=== PATIENT | female | born 1990 | race Hispanic/Latino ===

== ENCOUNTER 2021-06-26 01:28 | Inpatient (IN) | payer OTHER ==
--- OUTSIDE RECORDS SUMMARY | 2021-06-26 01:31 | XMS REPORT | Continuity of Care Document ---
:1990 Author Organization [facility] t Address [address] [place] [address] Care Team Providers Name Role Phone Maria Dolores Attending Clinician Unavailable Magdaleno TURNER Attending Clinician Unavailable Maria Dolores Admitting Clinician Unavailable Payers Payer Name Policy Type Policy Number Effective Date Expiration Date S ource Problems This patient has no known problems. Allergies, Adverse Reactions, Alerts Allergy Allergy Status Severity Reaction(s) Onset Inactive Treating Comm ents Source Name Type Date Date Clinician No Known DA Active U [facility]-22 Clear s 00:00: [address] No Known DA Active U 0 [facility] 4-22 Clear s 00:00: [address] Medications This patient has no known medications. Procedures Procedure Date / Time Performed Performing Clinician Fernando esparza [id number] 2020-09-21 00:00:00 [facility] [id number] 2020-09-21 00:00:00 [facility] [id number] 2020-09-21 00:00:00 [facility] Encounters Start End Encounter Admission Attending Care Care Encounter Source Date/Time Date/Time Type Type Clinicians Facility Department ID 2020-09-21 Inpatient JOVANY Whitten DAYS [id number] [facility] 11:30:00 Ambika [id number] [facility] 2020-10-09 2020-10-09 Emergency E YOMAIRA TURNER SE 7500 14:02:00 22:06:00 MYRTLE harrington [facility] 2020-09-16 2020-09-16 Outpatient MANFRED Whitten LABO [id number] [facility] 18:57:00 18:57:00 Ambika [id number] [facility] Results Test Description Test Time Test Comments Results Result Comments Source STOMACH 2020-09-22 17:09:00 Test Item Value Reference Range Interpretation Comme nts STOMACH RUN DATE: (test 09/22/20 [facility] PAGE 1 RUN TIME: 1709 code = Specim en Inquiry RUN USER: INTERFACE STOM) PATIENT: JULIANE AKINS LOC: STEPHANIE U #: [id number] AGE/SX: 30/F ROOM: [facility] RE09/21/20[facility] DR: Ambika Whitten MD : [birth year] BED: A DIS: STATUS: ADM IN TLOC: SPEC #: [id number] RECD: STATUS: MICHELLE SANABRIA #: [id number] ROB: 09/21/20 [facility] DR: Ambika Whitten MD ENTERED: 09/21/20 SP TYPE: STOMACH OTHR DR: Milo Block MD ORDERED: GROSS COPIES TO: Ambika Whitten MD [address] [place] [address] Milo Block MD [address] [address] [place] [address] PROC EDURES: GROSS (09/22/20-130) TISSUES: STOMACH, NOS CLINICAL HISTORY COLLECTI ON DATE: 09/21/20 [facility] OBESITY FINAL DIAGNOSIS Stomach, sleeve gastrectomy: B ENIGN GASTRIC MUCOSA AND MUSCULAR WALL WITH NO PATHOLOGIC ALTERATION RRB/moris D [id number] MACROSCOPIC The specimen is received in formalin, labeled with the patient's name, and id entified as "portion of stomach". It consists of a portion of stomach which measures 15.5 x 4.2 x 2.7 cm. The serosal surface is unremarkable. The mucosal margin is stapled. The stomach is ope ravi and contains a small amount of hemorrhagic mucoid material. The mucosal folds are unremarkab le appearing. No focal lesions are seen. A sample of the specimen is submitted for microscopic examination in a single cassette. CONTINUED ON NEXT PAGE RUN DATE: 09/22/20 [facility] PAGE 2 RUN TIME: 1709 Specimen Inquiry RUN USER: INTERFACE SPEC #: [id number] PATIENT: JULIANE AKINS #[id number] (Continued) -- MACROSCOPIC (Continued) GROSS PERFORMED AT [facility] [address] [place] [address] (p)[phone] [facility] CROSCOPIC All of the stains, including any controls performed, stain appropriately. MICROSC OPIC PERFORMED AT [facility] [address] [place] [address] (P)[phone] PERFORMING SITE Diagnosis performed at: [facility] [address] [place] [address] --- Signed SIGNATURE ON FILE Jason Villalta MD 09/22/20 8275 END OF REPORT BASIC METABOLIC [id number] 04:49:00 Test Item Value Reference Range Interpretation Comments SODIUM (test code = 138 mmol/L 136-145 N NA) POTASSIUM (test code 3.8 mmol/L 3.5-5.1 N = K) CHLORIDE (test code 107.0 mmol/L 98-107 N = CL) CARBON DIOXIDE (test 21.0 mmol/L 21-32 N code = CO2) ANION GAP (test code 13.8 10-20 N = GAP) GLUCOSE (test code = 111 mg/dL 74-106 H GLU) BLOOD UREA NITROGEN 12 mg/dL 7-18 N (test code = BUN) GLOMERULAR > 60 mL/min See_Comment Estimated GFR b y FILTRATION RATE using Modifi ed MDRD (test code = GFR) formula.Ch ron kidney disease is defined as eith er kidney damageor GFR <60 mL/min/1.73 m2 for >3 months. [Automated mess age] The system [employer] generated this result transmitted ref erence range: >=60. Th e reference range was not used to int erpret this result as normal/abnormal . CREATININE (test 0.80 mg/dL 0.55-1.02 N Note thomas ge in code = CREAT) reference rang e due to change in reagent. BUN/CREATININE RATIO 14.5 10-20 N (test code = BUN/CREA) CALCIUM (test code = 9.1 mg/dL 8.5-10.1 N CA) CBC W/AUTO [id number] 04:45:00 Test Item Value Reference Range Interpretation Comments WHITE BLOOD CELL (test code = 10.2 K/mm3 4.5-12.5 N WBC) RED BLOOD CELL (test code = 4.68 mill/mm3 3.7-5.2 N RBC) HEMOGLOBIN (test code = HGB) 13.6 gram/dL 11.5-15.5 N HEMATOCRIT (test code = HCT) 39.6 % 36.0-46.0 N MEAN CELL VOLUME (test code = 84.6 fL 80-98 N MCV) MEAN CELL HGB (test code = MCH) 29.1 picogram 27.0-33.0 N MEAN CELL HGB CONCETRATION 34.3 gram/dL 33.0-36.0 N (test code = MCHC) RED CELL DISTRIBUTION WIDTH 12.4 % 11.6-16.2 N (test code = RDW) RED CELL DISTRIBUTION WIDTH SD 37.4 fL 37.0-51.0 N (test code = RDW-SD) PLATELET COUNT (test code = 313 K/mm3 150-450 N PLT) MEAN PLATELET VOLUME (test code 9.8 fL 6.7-11.0 N = MPV) NEUTROPHIL % (test code = NT%) 88.0 % 39.0-69.0 H IMMATURE GRANULOCYTE % (test 0.4 % 0.0-5.0 N code = IG%) LYMPHOCYTE % (test code = LY%) 6.3 % 25.0-55.0 L MONOCYTE % (test code = MO%) 5.2 % 0.0-10.0 N EOSINOPHIL % (test code = EO%) 0.0 % 0.0-5.0 N BASOPHIL % (test code = BA%) 0.1 % 0.0-1.0 N NUCLEATED RBC % (test code = 0.0 % 0-0 N NRBC%) NEUTROPHIL # (test code = NT#) 8.99 K/mm3 1.8-7.7 H IMMATURE GRANULOCYTE # (test 0.04 x10 3/uL 0-0.03 H code = IG#) LYMPHOCYTE # (test code = LY#) 0.64 K/mm3 1.0-5.0 L MONOCYTE # (test code = MO#) 0.53 K/mm3 0-0.8 N EOSINOPHIL # (test code = EO#) 0.00 K/mm3 0.0-0.5 N BASOPHIL # (test code = BA#) 0.01 K/mm3 0.0-0.2 N NUCLEATED RBC # (test code = 0.00 K/mm3 0.0-0.1 N NRBC#) MANUAL DIFF REQUIRED (test code NO = MDIFF) [id number] 10:24:00 Test Item Value Reference Range Interpretation Comments GLUBED (test code = 88 mg/dL 74-106 N Performe d by certified GLUBED) 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 Positiv e results do not rule out bacterial infection or co -infection with other viru ses. Negative result s do not preclude SARS-C oV-2 infection andsh ould not be used as the melida e basis for patient managementdecis ions. Negative result s must be combined with otherclinical observations, p atient history, and epidemiological information . Detection of SARS-CoV-2 RNA may be affe cted bysample collec tion methods, storag e conditions, and /or stageof infection. Nicole l RNA mutations, vacc inations, antiviraltherap eutics, antibiotics, chemotherapeuti c orimmunosuppres jennifer drugs have not been e valuated for effectson d etection. Results are for the identification of SARS-CoV-2 RNA usingreal-time (RT) polymerase danielle n reaction (PCR) technolog yfor the qualitative det ection of nucleic acids f rom [id number] v irus and diagnosis of SA RS-CoV-2 virusinfection. It is an Emergency Use Authorization ( EUA) testauthorized by the U.S. FDA. Novel Coronavirus [id number] 09:49:00 Test Item Value Reference Range Interpretation Comments Novel Coronavirus Negative Negative Positive r esults are 2019 Inhouse (test indicativ e of the presence code = [id number]) ofSARS-CoV -2 RNA, clinical correlation wit h patient historyand othe r diagnostic info rmation is necessary to determinepatien t infection status. Positiv e results do not rule out bacterial infection or co -infection with other viru ses. Negative result s do not preclude SARS-C oV-2 infection andsh ould not be used as the melida e basis for patient managementdecis ions. Negative result s must be combined with otherclinical observations, p atient history, and epidemiological information . Detection of SARS-CoV-2 RNA may be affe cted bysample collec tion methods, storag e conditions, and /or stageof infection. Nicole l RNA mutations, vacc inations, antiviraltherap eutics, antibiotics, chemotherapeuti c orimmunosuppres jennifer drugs have not been e valuated for effectson d etection. Results are for the identification of SARS-CoV-2 RNA usingreal-time (RT) polymerase danielle n reaction (PCR) technolog yfor the qualitative det ection of nucleic acids f rom [id number] v irus and diagnosis of SA RS-CoV-2 virusinfection. It is an Emergency Use Authorization ( EUA) testauthorized by the U.S. FDA. URINALYSIS [id number] 18:56:00 Test Item Value Reference Range Interpretation Comments UA COLOR (test code = COLU) Light-Yellow YELLOW UA APPEARANCE (test code = CLEAR CLEAR APPU) UA GLUCOSE DIPSTICK (test NEGATIVE mg/dL NEGATIVE code = DGLUU) UA BILIRUBIN DIPSTICK (test NEGATIVE mg/dL NEGATIVE code = BILU) UA KETONE DIPSTICK (test code NEGATIVE mg/dL NEGATIVE = KETU) UA SPECIFIC GRAVITY (test 1.020 1.001-1.035 code = SGU) UA BLOOD DIPSTICK (test code Negative mg/dL NEGATIVE = LOKI) UA PH DIPSTICK (test code = 6.5 5.0-8.0 TREY) UA PROTEIN DIPSTICK (test NEGATIVE mg/dL NEGATIVE code = PROU) UA UROBILINIOGEN DIPSTICK Normal mg/dL NEGATIVE (test code = URO) UA NITRITE DIPSTICK (test NEGATIVE NEGATIVE code = MANNY) UA LEUKOCYTE ESTERASE W NEGATIVE Flavio/uL NEGATIVE REFLEX (test code = LEUUR) UA WBC (test code = WBCU) 0-5 per HPF 0-5 UA RBC (test code = RBCU) 0-2 #/HPF 0-5 UA EPITHELIAL CELLS (test FEW per HPF FEW code = EPIU) UA BACTERIA (test code = NONE SEEN #/HPF NONE BACU) Urine Source? Clean CatchURINALYSIS [id number] 18:47:00 Test Item Value Reference Range Interpretation Comments UA COLOR (test code = COLU) Light-Yellow YELLOW UA APPEARANCE (test code = CLEAR CLEAR APPU) UA GLUCOSE DIPSTICK (test NEGATIVE mg/dL NEGATIVE code = DGLUU) UA BILIRUBIN DIPSTICK (test NEGATIVE mg/dL NEGATIVE code = BILU) UA KETONE DIPSTICK (test code NEGATIVE mg/dL NEGATIVE = KETU) UA SPECIFIC GRAVITY (test 1.020 1.001-1.035 code = SGU) UA BLOOD DIPSTICK (test code Negative mg/dL NEGATIVE = LOKI) UA PH DIPSTICK (test code = 6.5 5.0-8.0 TREY) UA PROTEIN DIPSTICK (test NEGATIVE mg/dL NEGATIVE code = PROU) UA UROBILINIOGEN DIPSTICK Normal mg/dL NEGATIVE (test code = URO) UA NITRITE DIPSTICK (test NEGATIVE NEGATIVE code = MANNY) UA LEUKOCYTE ESTERASE W NEGATIVE Flavio/uL NEGATIVE REFLEX (test code = LEUUR) UA WBC (test code = WBCU) per HPF 0-5 UA RBC (test code = RBCU) per HPF 0-5 UA EPITHELIAL CELLS (test per HPF Few code = EPIU) UA BACTERIA (test code = per HPF NONE BACU) Urine Source? Clean CatchPROTHROMBIN [id number] 18:41:00 Test Item Value Reference Range Interpretation Comments PROTHROMBIN TIME 11.2 seconds 9.0-14.0 N PATIENT (test code = PTP) INTERNATIONAL NORMAL 1.0 0.8-1.2 N The the rapeutic range RATIO (test code = for oral INR) anticoagulant t herapy formost indicat ions is an internati onal normalized rati o (INR)of between 2.0 and 3.0. The recommended therapeutic INR range for various cli nical situations is l isted below: Clinical Situat ion INR range Pulmonary embol ism treatment (2.0-3.0)Venou s thrombosis treatmentVenous thrombosis prophylaxis (hi gh risk surgery)Prevent ion of systemic emboli sm from: A cute myocardial infa rction Valvula r heart disease Atrial fibrilla tion Mechanical pros thetic heart valves (2.5-3.5) IS PATIENT ON ANTICOAGULANTS? NTHROMBOPLASTIN TIME [id number] 18:41:00 Test Item Value Reference Range Interpretation Comments THROMBOPLASTIN TIME PARTIAL 36.2 seconds 23.0-37.0 N (test code = PTT) IS PATIENT ON ANTICOAGULANTS? NCBC W/AUTO [id number] 18:38:00 Test Item Value Reference Range Interpretation Comments WHITE BLOOD CELL (test code = 7.0 K/mm3 4.5-12.5 N WBC) RED BLOOD CELL (test code = 4.95 mill/mm3 3.7-5.2 N RBC) HEMOGLOBIN (test code = HGB) 14.2 gram/dL 11.5-15.5 N HEMATOCRIT (test code = HCT) 43.3 % 36.0-46.0 N MEAN CELL VOLUME (test code = 87.5 fL 80-98 N MCV) MEAN CELL HGB (test code = MCH) 28.7 picogram 27.0-33.0 N MEAN CELL HGB CONCETRATION 32.8 gram/dL 33.0-36.0 L (test code = MCHC) RED CELL DISTRIBUTION WIDTH 12.8 % 11.6-16.2 N (test code = RDW) RED CELL DISTRIBUTION WIDTH SD 40.4 fL 37.0-51.0 N (test code = RDW-SD) PLATELET COUNT (test code = 314 K/mm3 150-450 N PLT) MEAN PLATELET VOLUME (test code 10.4 fL 6.7-11.0 N = MPV) NEUTROPHIL % (test code = NT%) 68.4 % 39.0-69.0 N IMMATURE GRANULOCYTE % (test 0.3 % 0.0-5.0 N code = IG%) LYMPHOCYTE % (test code = LY%) 25.2 % 25.0-55.0 N MONOCYTE % (test code = MO%) 4.9 % 0.0-10.0 N EOSINOPHIL % (test code = EO%) 0.9 % 0.0-5.0 N BASOPHIL % (test code = BA%) 0.3 % 0.0-1.0 N NUCLEATED RBC % (test code = 0.0 % 0-0 N NRBC%) NEUTROPHIL # (test code = NT#) 4.76 K/mm3 1.8-7.7 N IMMATURE GRANULOCYTE # (test 0.02 x10 3/uL 0-0.03 N code = IG#) LYMPHOCYTE # (test code = LY#) 1.75 K/mm3 1.0-5.0 N MONOCYTE # (test code = MO#) 0.34 K/mm3 0-0.8 N EOSINOPHIL # (test code = EO#) 0.06 K/mm3 0.0-0.5 N BASOPHIL # (test code = BA#) 0.02 K/mm3 0.0-0.2 N NUCLEATED RBC # (test code = 0.00 K/mm3 0.0-0.1 N NRBC#) MANUAL DIFF REQUIRED (test code NO = MDIFF) CBC W/AUTO [id number] 18:33:00 Test Item Value Reference Range Interpretation Comments WHITE BLOOD CELL (test code = K/mm3 4.5-12.5 WBC) RED BLOOD CELL (test code = RBC) mill/mm3 3.7-5.2 HEMOGLOBIN (test code = HGB) 14.2 gram/dL 11.5-15.5 N HEMATOCRIT (test code = HCT) 43.3 % 36.0-46.0 N MEAN CELL VOLUME (test code = fL 80-98 MCV) MEAN CELL HGB (test code = MCH) picogram 27.0-33.0 MEAN CELL HGB CONCETRATION (test gram/dL 33.0-36.0 code = MCHC) RED CELL DISTRIBUTION WIDTH % 11.6-16.2 (test code = RDW) RED CELL DISTRIBUTION WIDTH SD fL 37.0-51.0 (test code = RDW-SD) PLATELET COUNT (test code = PLT) 314 K/mm3 150-450 N MEAN PLATELET VOLUME (test code fL 6.7-11.0 = MPV) NEUTROPHIL % (test code = NT%) % 39.0-69.0 IMMATURE GRANULOCYTE % (test % 0.0-5.0 code = IG%) LYMPHOCYTE % (test code = LY%) % 25.0-55.0 MONOCYTE % (test code = MO%) % 0.0-10.0 EOSINOPHIL % (test code = EO%) % 0.0-5.0 BASOPHIL % (test code = BA%) % 0.0-1.0 NEUTROPHIL # (test code = NT#) K/mm3 1.8-7.7 LYMPHOCYTE # (test code = LY#) K/mm3 1.0-5.0 MONOCYTE # (test code = MO#) K/mm3 0-0.8 EOSINOPHIL # (test code = EO#) K/mm3 0.0-0.5 BASOPHIL # (test code = BA#) K/mm3 0.0-0.2 COMPREHENSIVE METABOLIC [id number] 18:23:00 Test Item Value Reference Range Interpretation Comments SODIUM (test code = 136 mmol/L 136-145 N NA) POTASSIUM (test code 3.5 mmol/L 3.5-5.1 N = K) CHLORIDE (test code = 106.0 mmol/L 98-107 N CL) CARBON DIOXIDE (test 24.0 mmol/L 21-32 N code = CO2) ANION GAP (test code 9.5 10-20 L = GAP) GLUCOSE (test code = 75 mg/dL 74-106 N GLU) BLOOD UREA NITROGEN 13 mg/dL 7-18 N (test code = BUN) GLOMERULAR FILTRATION > 60 mL/min See_Comment Estima lopez GFR by RATE (test code = using Jacquelyn fied MDRD GFR) formula.Chronic kidney disease is defined as eith er kidney damageor GFR <60 mL/min/1.73 m2 for >3 months. [Automated mess age] The system [employer] generated this result transmit lopez reference range : >=60. The refer ence range was not u sed to interpret th is result as normal/abnormal . CREATININE (test code 0.80 mg/dL 0.55-1.02 N Note change in = CREAT) reference range due to change in reagent. BUN/CREATININE RATIO 16.0 10-20 N (test code = BUN/CREA) TOTAL PROTEIN (test 7.6 gram/dL 6.4-8.2 N code = PROT) ALBUMIN (test code = 4.2 g/dL 3.4-5.0 N ALB) GLOBULIN (test code = 3.4 gram/dL 2.7-4.2 N GLOB) ALBUMIN/GLOBULIN 1.2 0.75-1.50 N RATIO (test code = A/G) CALCIUM (test code = 9.7 mg/dL 8.5-10.1 N CA) BILIRUBIN TOTAL (test 0.50 mg/dL 0.0-1.0 N code = BILT) SGOT/AST (test code = 24 IUnit/L 15-37 N AST) SGPT/ALT (test code = 41 IUnit/L 12-78 N ALT) ALKALINE PHOSPHATASE 65 IUnit/L 45-117 N Note change in TOTAL (test code = reference range due ALKP) to change in reagent. HCG SERUM [id number] 18:21:00 Test Item Value Reference Range Interpretation Comments HCG SERUM QUAL (test NEGATIVE NEGATIVE This HC GQL test is NOT code = HCGQL) applicable for MALE patients.Check with nurse about probable order error.If Tumor Marker Test needed, nu rse should order test "HCG TU"(Test #[id number])---- - - XR CHEST 2 [id number] 14:39:00 [facility] 1990 Sex: F FAX: Ambika Benavidez MD [phone] [place]: O St: PRE Name: JULIANE AKINS [facility] : 1990 Age/S: 30/F [address] Unit #: [id number] Loc: [place] [address] Phys: Ambika Whitten MD Acct: [id number] Dis Date: Status: PRE IN PHONE #: [phone] Exam Date: 09/16/2020 1435 FAX #: [phone] Reason: PRE OP EXAMS: CPT CODE: [id number] XR CHEST 2 V 21631 REASON FOR EXAM: PRE OP Exam Order Date: 09/16/2020 2:28 PM Ordering Ranjith: JANEL BrooksROCEDURE: - XR CHEST 2 V COMPARISON: None FINDINGS: The lungs are clear. There is no pleural effusion or pneumothorax. Pulmonary vascularity is within normal limits. Cardiomediastinal silhouette is normal in size for technique. The mediastinal contours are within normal limits. Musculoskeletal structures are within normal limits. The visualized upper abdomen is within normal limits. IM PRESSION: No acute cardiopulmonary process. Location: [facility] at 1439 Reported and signedby: Jonah Santana MD CC: Ambika Whitten MD Technologist: RT Inna(Jennifer) Trnscrd Date/Time/By: 09/16/2020 (9189) : By: [email or web address] Orig Print D/T: S: 09/16/2020 (8372) PAGE 1 Signed Report
[2021-06-26] MEDS ORDERED: ONDANSETRON 4 MG/2 ML VIAL ONE ×2 (02:12→10:20)
[2021-06-26] MEDS ORDERED: NA CHLORIDE 0.9% 1,000 ML ONE ×2 (02:12→16:41)
[2021-06-26] MEDS ORDERED: MORPHINE 4 MG/ML SYR ONE (02:12)
[2021-06-26 02:14] LABS: Absolute Lymphocytes (CBC) 1.6 K/uL (0.7-4.9); Hematocrit 38.1 % (36.0-45.0); Lymphocytes % 30.8 % (15.3-44.8); MPV 7.9 fL (7.6-11.3)
[2021-06-26 02:30] LABS: Albumin 3.8 g/dL (3.4-5.0); Bilirubin Direct 1.3 mg/dL (0-0.2); Bilirubin Total 1.9 mg/dL (0.2-1.0); Potassium 3.1 mmol/L (3.5-5.1); Protein, Total 7.5 g/dL (6.4-8.2)
[2021-06-26 03:13] LABS: Urine Blood 3+ (Negative); Urine Glucose Negative (Negative); Urine Protein Negative (Negative); Urine Specific Gravity >=1.030 (1.005-1.030); Urine pH 5.5 (5.0-7.0)
[2021-06-26] MEDS ORDERED: NA CHLORIDE 0.9% 100 ML ONE ×2 (04:24→16:32)
[2021-06-26] MEDS ORDERED: PIPERACIL/TAZO 3.375 GM VIAL IV ONE ×2 (04:25→16:32)
--- NOTE | 2021-06-26 04:32 | ER ---
Nurse's Notes [facility] Name: Gerald Shin Age: 31 yrs Sex: Female : 1990 Arrival Date: 06/26/2021 Time: :30 Bed 26 Private MD: Diagnosis: Other cholelithiasis with obstruction-Possible choledocholithiasis Presentation: 06/26 01:34 Chief complaint: Patient states: Diagnosed with cholelithiasis at [place] about 4 days bb ago; Reports pain has worsened, nausea. Coronavirus screen: At this time, the client does not indicate any symptoms associated with coronavirus-19. Ebola Screen: No symptoms or risks identified at this time. Risk Assessment: Do you want to hurt yourself or someone else? Patient reports no desire to harm self or others. Onset of symptoms was June 26, 2021. 01:34 Method Of Arrival: Ambulatory bb 01:34 Acuity: CELIA 3 bb 01:35 Initial Sepsis Screen: Does the patient meet any 2 criteria? No. Patient's initial bb sepsis screen is negative. Does the patient have a suspected source of infection? No. Patient's initial sepsis screen is negative. Triage Assessment: 03:25 General: Appears in no apparent distress. well groomed, Behavior is calm, cooperative. st1 Pain: Complains of pain in abdomen Pain does not radiate. Pain. GI: No deficits noted. INTERNAL REVIEW AND AUDIT COMPLIANCE: 02:07 LMP 06/26/2021 bb Historical: - Allergies: 02:06 No Known Allergies; bb - Home Meds: 02:06 None [Active]; bb - PMHx: 02:06 None; bb - PSHx: 02:06 Gastric Sleeve; bb - Immunization history:: Adult Immunizations up to date. - Social history:: Smoking status: Patient denies any tobacco usage or history of. Screenin:24 Abuse screen: Denies threats or abuse. Nutritional screening: No deficits noted. st1 Tuberculosis screening: No symptoms or risk factors identified. Fall Risk None identified. No fall in past 12 months (0 pts). No secondary diagnosis (0 pts). IV access (20 points). Ambulatory Aid- None/Bed Rest/Nurse Assist (0 pts). Gait- Normal/Bed Rest/Wheelchair (0 pts) Mental Status- Oriented to own ability (0 pts). Total Cai Fall Scale indicates No Risk (0-24 pts). Assessment: 03:26 GI: GI:. st1 04:08 GI: Bowel sounds present X [address]1 Vital Signs: 01:35 BP 146 / 80; Pulse 66; Resp 16; Temp 98.3(O); Pulse Ox 100% on R/A; Weight 73.48 kg bb (R); Height 5 ft. 8 in. (172.72 cm); Pain 9/10; 03:58 BP 133 / 70; Pulse 51; Resp 16; Pulse Ox 98% on R/A; st1 01:35 Body Mass Index 24.63 (73.48 kg, 172.72 cm) ED Course: 01:30 Patient arrived in ED. kc5 01:35 Triage completed. bb 01:35 Arm band placed on. bb 01:36 Yinka Arroyo MD is Attending Physician. [facility] 02:03 Melodie Scott, RN is Primary Nurse. sf1 02:03 Inserted saline lock: 20 gauge in right antecubital area, using aseptic technique. sf1 Blood collected. 02:08 Basic Metabolic Panel Sent. sf1 02:08 CBC with Diff Sent. sf1 02:08 Hepatic Function Sent. sf1 02:08 Lipase Sent. sf1 02:22 US Abdomen Limited In Process Unspecified. EDMS 03:26 Patient has correct armband on for positive identification. Placed in gown. Bed in low st1 position. Call light in reach. Side rails up X 1. Pulse ox on. NIBP on. Verbal reassurance given. 04:09 No provider procedures requiring assistance completed. st1 04:31 Aditi Conteh MD is Hospitalizing Provider. 7 05:45 COVID-19 SARS RT PCR (Document "Date of Onset" if Symptomatic) Sent. st1 06:10 called and left message for Dr. Acosta to call ED for patient admission consultation. eb 07:08 Primary Nurse role handed off by Melodie Scott, RN eb Administered Medications: 02:26 Drug: NS 0.9% 1000 ml Route: IV; Rate: 1000 ml; Site: right antecubital; sf1 02:26 Drug: morphine 4 mg Route: IVP; Site: right antecubital; sf1 02:26 Drug: Zofran (Ondansetron) 4 mg Route: IVP; Site: right antecubital; sf1 04:32 Drug: Zosyn (piperacillin-tazobactam) 3.375 grams Route: IVPB; Infused Over: 60 mins; sf1 Site: right antecubital; 04:48 Drug: D5-1/2 NS with KCl 20 mEq/L 1000 ml Route: IV; Rate: 100 ml/hr; Site: right st1 antecubital; Outcome: 04:31 Decision to Hospitalize by Provider. Shashi 17:46 Patient left the ED. [facility] Signatures: Dispatcher [employer] EDMS Chelly Rivers RN RN Geovanna Sanches Lynsay, RN RN 1 Yinka Arroyo MD MD 7 Katherin Chung [facility] Estrella Caruso RN RN st1 Melodie Scott RN RN sf1
--- NOTE | 2021-06-26 04:33 | EDPHYS ---
Physician Documentation [facility] Michelle Name: Gerald Shin Age: 31 yrs Sex: Female : 1990 Arrival Date: 06/26/2021 Time: : Bed 26 Private MD: ED Physician Yinka Arroyo HPI: 06/26 02:20 This 31 yrs old Female presents to ER via Ambulatory with complaints of mh7 Abdominal Pain, Flank Pain, Back Pain. 02:20 The patient presents with abdominal pain in the right upper quadrant. Onset: The mh7 symptoms/episode began/occurred 5 day(s) ago. The symptoms radiate to right back. Associated signs and symptoms: Pertinent positives: nausea, Pertinent negatives: anorexia, blood in stools, chest pain, constipation, diarrhea, dysuria, fever, headache, hematuria, palpitations, shortness of breath, vaginal discharge, vomiting, vomiting blood. The symptoms are described as intermittent, vague, waxing/waning. Modifying factors: The symptoms are alleviated by nothing, the symptoms are aggravated by nothing. Severity of pain: At its worst the pain was moderate 2 day(s) ago, in the emergency department the pain is unchanged. 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 - Social history:: Smoking status: Patient denies any tobacco usage or history of. ROS: 02:20 Constitutional: Negative for fever, chills, and weight loss, Eyes: Negative for injury, mh7 pain, redness, and discharge, ENT: Negative for injury, pain, and discharge, Neck: Negative for injury, pain, and swelling, Cardiovascular: Negative for chest pain, palpitations, and edema, Respiratory: Negative for shortness of breath, cough, wheezing, and pleuritic chest pain, : Negative for injury, bleeding, discharge, and swelling, MS/Extremity: Negative for injury and deformity, Skin: Negative for injury, rash, and discoloration, Neuro: Negative for headache, weakness, numbness, tingling, and seizure, Psych: Negative for depression, anxiety, suicide ideation, homicidal ideation, and hallucinations, Allergy/Immunology: Negative for hives, rash, and allergies, Endocrine: Negative for neck swelling, polydipsia, polyuria, polyphagia, and marked weight changes, Hematologic/Lymphatic: Negative for swollen nodes, abnormal bleeding, and unusual bruising. Exam: 02:20 Head/Face: Normocephalic, atraumatic. Eyes: Pupils equal round and reactive to light, mh7 extra-ocular motions intact. Lids and lashes normal. Conjunctiva and sclera are non-icteric and not injected. Cornea within normal limits. Periorbital areas with no swelling, redness, or edema. Neck: Trachea midline, no thyromegaly or masses palpated, and no cervical lymphadenopathy. Supple, full range of motion without nuchal rigidity, or vertebral point tenderness. No Meningismus. Chest/axilla: Normal chest wall appearance and motion. Nontender with no deformity. No lesions are appreciated. Cardiovascular: Regular rate and rhythm with a normal S1 and S2. No gallops, murmurs, or rubs. Normal PMI, no JVD. No pulse deficits. Respiratory: Lungs have equal breath sounds bilaterally, clear to auscultation and percussion. No rales, rhonchi or wheezes noted. No increased work of breathing, no retractions or nasal flaring. 02:20 Back: No spinal tenderness. No costovertebral tenderness. Full range of motion. Skin: Warm, dry with normal turgor. Normal color with no rashes, no lesions, and no evidence of cellulitis. MS/ Extremity: Pulses equal, no cyanosis. Neurovascular intact. Full, normal range of motion. Neuro: Awake and alert, GCS 15, oriented to person, place, time, and situation. Cranial nerves II-XII grossly intact. Motor strength 5/5 in all extremities. Sensory grossly intact. Cerebellar exam normal. Normal gait. Psych: Awake, alert, with orientation to person, place and time. Behavior, mood, and affect are within normal limits. 02:20 Constitutional: The patient appears in no acute distress, alert, awake, uncomfortable. 02:20 Abdomen/GI: Inspection: abdomen appears normal, Bowel sounds: normal, in all quadrants, Palpation: moderate abdominal tenderness, in the epigastric area and right upper quadrant, mass, is not appreciated, rebound tenderness, is not appreciated, voluntary guarding, is not appreciated, involuntary guarding, is not appreciated, no appreciated organomegaly, Rectal exam: the exam is deferred, because of patient request, Indicators: McBurney's point is not tender, Denney's sign is negative, Rovsing's sign is negative, Obturator sign is negative, Psoas sign is negative, Liver: no appreciated palpable abnormalities, Hernia: not appreciated. Vital Signs: 01:35 BP 146 / 80; Pulse 66; Resp 16; Temp 98.3(O); Pulse Ox 100% on R/A; Weight 73.48 kg bb (R); Height 5 ft. 8 in. (172.72 cm); Pain 9/10; 03:58 BP 133 / 70; Pulse 51; Resp 16; Pulse Ox 98% on R/A; st1 01:35 Body Mass Index 24.63 (73.48 kg, 172.72 cm) MDM: 04:28 Differential diagnosis: bowel obstruction, cholecystitis, Cholelithiasis, gastritis, mh7 gastroesophageal reflux disease, Irritable bowel syndrome, non-specific abd pain, pancreatitis. Data reviewed: vital signs, nurses notes, diagnostic data from outside facility, CBC, electrolytes, hepatic panel, radiologic studies, ultrasound, lab test result(s), CBC, electrolytes, hepatic panel, urinalysis, UPT: radiologic studies, ultrasound. Data interpreted: Pulse oximetry: on room air is 98 %. Interpretation: normal. Counseling: I had a detailed discussion with the patient and/or guardian regarding: the historical points, exam findings, and any diagnostic results supporting the discharge/admit diagnosis, lab results, radiology results, the need for further work-up and treatment in the hospital. Response to treatment: the patient's symptoms have mildly improved after treatment. Physician consultation: Jay Jay Camacho MD was contacted at 04:10, regarding patient's condition, and will see patient in inpatient room, would like admission per Dr. Aditi Conteh MD. 04:31 Patient medically screened. 06/26 01:58 Order name: Basic Metabolic Panel; Complete Time: 02:58 06/26 01:58 Order name: CBC with Diff; Complete Time: 02:58 06/26 01:58 Order name: Hepatic Function; Complete Time: 02:58 06/26 01:58 Order name: Lipase; Complete Time: 02:58 [facility] 06/26 03:12 Order name: Urine Dipstick-Ancillary; Complete Time: 03:16 [facility] 06/26 03:12 Order name: Urine --Ancillary (enter results); Complete Time: 03:33 cs9 06/26 01:58 Order name: US Abdomen Limited 7 06/26 04:53 Order name: COVID-19 SARS RT PCR (Document "Date of Onset" if Symptomatic); Complete bb Time: 19:22 06/26 07:48 Order name: Protime (+INR); Complete Time: 19:22 [facility] 06/26 07:48 Order name: PTT, Activated Partial Thromb; Complete Time: 19:22 [facility] 06/26 01:58 Order name: IV Saline Lock; Complete Time: 02:08 [facility] 06/26 01:58 Order name: Labs collected and sent; Complete Time: 02:08 [facility] 06/26 01:58 Order name: Urine Dipstick-Ancillary (obtain specimen); Complete Time: 03:17 [facility] 06/26 01:58 Order name: Urine Test (obtain specimen); Complete Time: 03:17 [facility] 06/26 04:32 Order name: NPO; Complete Time: 04:47 [facility] 06/26 06:44 Order name: CONS Physician Consult [facility] Administered Medications: 02:26 Drug: NS 0.9% 1000 ml Route: IV; Rate: 1000 ml; Site: right antecubital; sf1 02:26 Drug: morphine 4 mg Route: IVP; Site: right antecubital; sf1 02:26 Drug: Zofran (Ondansetron) 4 mg Route: IVP; Site: right antecubital; sf1 04:32 Drug: Zosyn (piperacillin-tazobactam) 3.375 grams Route: IVPB; Infused Over: 60 mins; sf1 Site: right antecubital; 04:48 Drug: D5-1/2 NS with KCl 20 mEq/L 1000 ml Route: IV; Rate: 100 ml/hr; Site: right st1 antecubital; Disposition Summary: 06/26/21 04:31 Hospitalization Ordered Hospitalization Status: Inpatient Admission [facility] Provider: Aditi Conteh Condition: Stable mh7 Problem: new [facility] Symptoms: have improved mh Bed/Room Type: Standard [facility] Location: Telemetry/MedSurg (Inpatient)(06/26/21 16:54) eb Room Assignment: 408(06/26/21 16:54) Diagnosis - Other cholelithiasis with obstruction - Possible choledocholithiasis [facility] Forms: - Medication Reconciliation Form 7 - SBAR form [facility] Signatures: Dispatcher [employer] EDMS Wendie Mejias RN RN mw Ballard, Brenda, RN RN bb Botello, Elizabeth eb Holmes, Maurice, MD MD Estrella Mcnulty RN RN st1 Melodie Scott RN RN sf1 Corrections: (The following items were deleted from the chart) 05:41 04:31 Telemetry/MedSurg (Inpatient) [facility] mw 05:41 04:31 7 mw 16:54 05:41 BR ER HOLD mw eb 16:54 05:41 ERHOLD- mw eb
[2021-06-26] MEDS ORDERED: D5 0.45 NS 0 ML IV ONE (04:45)
[2021-06-26] MEDS ORDERED: D5.45NS W/KCL 20MEQ 1,000 ML IV ONE (04:47)
--- NOTE | 2021-06-26 06:56 | P.HP ---
Certification for Inpatient Patient admitted to: Inpatient With expected LOS: <2 Midnights Patient will require the following post-hospital care: None Practitioner: I am a practitioner with admitting privileges, knowledge of patient current condition, hospital course, and medical plan of care. Services: Services provided to patient in accordance with Admission requirements found in Title 42 Section 412.3 of the Code of Federal Regulations Patient History Date of Service: 06/26/21 Primary Care Provider: Noe Reason for admission: cholecystitis History of Present Illness: Ms. Shin is a 31yo F with cholelithiasis who presents with 5 days of severe RUQ pain radiatian to her flank. She reports nausea. She has had decreased appetite and fluid intake. Symptoms are worse with food intake. Denies fever, and vomiting. She was scheduled for an appointment with general surgeon on Sunday but her pain continued to increase this evening. Gallbladder US shows cholelithiasis with gall bladder sludge, dilated DBD suspect distal biliary obstruction K 3.1 BUN 20 GFR 74 Tbili 1.9 Dbili 1.3 AST 17 ALT 271 alk phos 155 Ua ketone 2+ blood 3+ Allergies No Known Allergies Allergy (Verified 08/28/12 10:18) Home Medications: Methyldopa 1 tab PO BID 02/24/14 Hydrocodone 10/APAP 325 [[place] 10/325*] 1 tab PO Q6H PRN #20 tab 02/25/14 - Past Medical/Surgical History Diabetic: No Past Medical History: Patient denies medical history -: normal vaginal delivery x2 -: gastric sleeve - Family History Family History: Reviewed- Non-Contributory - Social History Smoking Status: Never smoker Alcohol use: No CD- Drugs: No Caffeine use: No Place of Residence: Home Review of Systems 10-point ROS is otherwise unremarkable Gastrointestinal: Nausea, Abdominal Pain Physical Examination - Physical Exam General: Alert, In no apparent distress HEENT: Atraumatic, PERRLA, Mucous membr. moist/pink, EOMI, Sclerae nonicteric Neck: Supple, 2+ carotid pulse no bruit, No LAD, Without JVD or thyroid abnormality Respiratory: Clear to auscultation bilaterally, Normal air movement Cardiovascular: Regular rate/rhythm, Normal S1 S2 Gastrointestinal: Normal bowel sounds, Tenderness Musculoskeletal: No tenderness Integumentary: No rashes Neurological: Normal speech, Normal strength at 5/5 x4 extr, Normal tone, Normal affect Lymphatics: No axilla or inguinal lymphadenopathy - Studies Laboratory Data (last 24 hrs) 06/26/21 02:05: WBC 5.20, Hgb 13.0, Hct 38.1, Plt Count 267 06/26/21 02:05: Sodium 140, Potassium 3.1 L, BUN 20 H, Creatinine 0.90, Glucose 88, Total Bilirubin 1.9 H, AST 117 H, ALT 271 H, Alkaline Phosphatase 155 H, Lipase 123 Assessment and Plan - Problems (Diagnosis) (1) Cholecystitis Current Visit: Yes Status: Acute (2) Common bile duct dilation Current Visit: Yes Status: Acute (3) Elevated liver enzymes Current Visit: Yes Status: Acute - Plan GI consulted, general surgery consulted NPO ERCP this AM continue IV fluid hydration IV zosyn, antiemetics and pain management SCDs Discharge Plan: Home Plan to discharge in: 48 Hours - Advance Directives Does patient have a Living Will: No Does patient have a Durable POA for Healthcare: No - Code Status/Comfort Care Code Status Assessed: Yes (full code ) Critical Care: No Time Spent Managing Pts Care (In Minutes): 70
[2021-06-26] MEDS ORDERED: ACETAMINOPHEN 500 MG TAB PO PRN (06:57)
[2021-06-26] MEDS: NA CHLORIDE 0.9% 1,000 ML IV SCH ×2 (07:00→16:28)
[2021-06-26 07:48] LABS: Protime INR 1.09
[2021-06-26 08:01] VITALS: BMI 24.6
[2021-06-26] MEDS ORDERED: GENTAMICIN SULF 80 MG/2ML INJ ONE ×2 (09:58→10:01)
[2021-06-26] MEDS ORDERED: GLUCAGON 1 MG/VIAL ONE (09:58)
[2021-06-26] MEDS ORDERED: MORPHINE 2 MG/ML SYR ONE (10:20)
[2021-06-26] MEDS: MORPHINE 2 MG/ML SYR IV PRN (10:22)
[2021-06-26] MEDS: ONDANSETRON 4 MG/2 ML VIAL IV PRN (10:22)
[2021-06-26] MEDS ORDERED: Ringers Lactate 1,000 ML IV ONE (10:33)
[2021-06-26] MEDS ORDERED: propofoL 200 MG/20 ML VIAL IV ONE ×2 (10:51)
[2021-06-26] MEDS ORDERED: GENTAMICIN 80 MG/100 ML BAG 80 MG/100 ML BAG IV SCH (11:15)
--- NOTE | 2021-06-26 13:19 | CON ---
Date of Consultation: 06/26/2021 Reason For Consultation: Cholelithiasis with cholecystitis and possible choledocholithiasis with rig ht upper quadrant epigastric pain associated with nausea, vomiting. History Of Present Illness: The patient is a 31-year-old female without significant past medical his tory except for gastric sleeve surgery on September 21, 2020, in [place], [place] and lost 100 pounds since that time. She presents now with a 5-day history of right upper quadrant midepigastric pain radiating to right flank and back associated with nausea, vomiting, headache. The patient came to the hospital. She was at [facility] may be a week ago, was told she had kidney stones with a CT ultrasound done and now she comes back again today to the [facility] Emergency Room with the same complaints and found to have gallstones and gallbladder with common bile duct approximately 9-10 mm in size, however, finalized report is pending at this time. Total biliru bin elevated at 1.3, direct bilirubin of approximately 1, and positive Denney sign on physical exam. Past Medical History: Significant for gastric sleeve surgery, September 21, 2020, 100-pound weight loss since then. Hypertension in the past is resolved. Weight loss. Lower back disk disorder, possible herniation with muscle relaxant, Soma in the past, which she does not take any more. [place], she had taken in the past, does not take it anymore. Social History: She is , 3 children. No tobacco. No alcohol. Family History: Mother and father alive and well. No medical problems noted by patient. Review of Systems: The patient has right upper quadrant midepigastric pain radiating to right flank and back associated with nausea, vomiting, and headache. 100-pound weight loss over the past 8 months from gastric sleev e surgery. She denies any fevers, chills, night sweats, melena, hematochezia, hematemesis, coffee-gr ound emesis, hematuria, hemoptysis, syncope, seizures, chest pain, shortness of breath. No depressio n or anxiety. Now she is little anxious about this procedure in her current condition and need for possible surgery as well. Physical Examination: Vital Signs: The patient is 5 feet 8 inches, 161 pounds, BMI of 24.6 kg/sq m. Temperature 98.9 degr ees Fahrenheit, pulse 49-50, blood pressure 138/71, oxygen saturation 100%. HEENT: Normocephalic, atraumatic. Anicteric. Pupils are equal, round, and reactive to light. Extr aocular movements are intact. Oropharynx is clear. Neck: Supple. No masses. Respirations: Clear to auscultation bilaterally. Cardiac: Regular rate and rhythm. No gallop or rub. Abdomen: Positive bowel sounds, somewhat hypoactive. Soft, nondistended. Pain in the midepigastric right upper quadrant area and greatest in the right upper quadrant than midepigastric, radiating to right back, right mid back. Positive Denney sign. No prodromal signs. No rebound. Extremities: No clubbing, cyanosis, or edema. 2+ pulses. Neuro: Alert and oriented x3. Grossly nonfocal. 5/5 motor strength. Sensation intact to light kings ch. Laboratory Data: The patient has white count of 5.2, hemoglobin 13.0, hematocrit 30.1, MCV of 85, pl atelet count 297, polys of 63%, lymphocytes 31%, monocytes 4%, eosinophils 1%. PT of 12.6, INR of 1. 1, PTT of 34.6. Sodium 140, potassium 3.1, chloride 106, bicarb 26, BUN of 20, creatinine 0.9, gluco se 88, calcium 9.2. Total bilirubin 1.9, direct bilirubin 1.3, AST of 117, ALT of 271, alkaline phos phatase 155, total protein 7.5, albumin 3.8. Lipase 123. Ketones of 3+, blood 3+. test n egative. Serology: COVID-19 test is positive. Ultrasound of abdomen report is pending. However, p er the report, she has a gallstone in the gallbladder and common bile duct was dilated approximately 9-10 mm in size. Impression: 1.Cholelithiasis, cholecystitis. Ultrasound revealing gallstones in gallbladder and common bile shubham t dilated at 9-10 mm. Positive Denney sign. Right upper quadrant midepigastric pain radiating to th e right back, 10/10 now down at 0 as far as intensity of pain. Nausea, vomiting, headache better as well. 2.100-pound weight loss after gastric sleeve surgery on September 21, 2020, with Dr. Whitten in [place], [place]. No fevers, chills, night sweats, melena, hematemesis, change in bowel habits. 3.Possible choledocholithiasis. 4.History of gastric sleeve surgery on September 21, 2020 with 100-pound weight loss. Prior hypertensio n resolved with weight loss and chronic low back pain with herniated disk, on Soma for muscle relaxan ts in the past. Recommendations: 1.IV fluids. 2.P.r.n. pain medications. 3.Keep patient n.p.o. 4.Proceed with ERCP. 5.IV antibiotics. 6.Surgery consult. HUGO/RESHMA Voice ID: [id number] Report ID: [id number]
--- NOTE | 2021-06-26 13:30 | P.PN ---
Date of Service: 06/26/21 Patient seen and examined. She denies abdominal pain at the moment. Diagnosis: Cholecystitis. Suspected biliary obstruction from CBD dilatation. Plan: General surgery consult. Dr. Camacho aware of patient. Dr. Acosta planning ERCP today.
[2021-06-26] MEDS: PIPER TAZO 3.375 GM in NA CHLORIDE 0.9% 100 ML IV SCH (16:29)
[2021-06-26] MEDS ORDERED: ACETAMINOPHEN 500 MG TAB ONE (16:41)
[2021-06-26] MEDS: KCL 20 MEQ/100 mL IVPB 20 MEQ/100 ML BAG IV SCH ×2 (20:45→23:29)
--- NOTE | 2021-06-26 23:57 | RAD REPORT ---
EXAM DESCRIPTION: US - Abdomen Exam Limited - 06/26/2021 2:22 am CLINICAL HISTORY: 31 years Female, RUQ pain;Abd pain COMPARISON: None. TECHNIQUE: Limited sonographic evaluation of the right upper quadrant was performed. FINDINGS: Several small shadowing stones in the gallbladder are demonstrated. Gallbladder sludge is present. No evidence gallbladder wall thickening. Common bile duct measures 1 cm in width and appears dilated. IMPRESSION: 1. Cholelithiasis with gallbladder sludge. 2. Dilated common bile duct which can be seen with distal biliary duct obstruction, follow-up MRCP ca n be performed as appropriate. Electronically signed by: Riki Bauman MD 06/26/2021 2:52 AM [employer] Due to temporary technical issues with the PACS/Fluency reporting system, reports are being signed by the in house radiologists without review as a courtesy to insure prompt reporting. The interpreting radiologist is fully responsible for the content of the report.
[2021-06-27] MEDS: PIPER TAZO 3.375 GM in NA CHLORIDE 0.9% 100 ML IV SCH ×3 (01:46→17:16)
[2021-06-27 04:05] LABS: Hematocrit 34.6 % (36.0-45.0); Lymphocytes % 23.2 % (15.3-44.8); RBC Red Blood Cell Count 4.04 M/uL (3.86-4.86)
[2021-06-27 04:46] LABS: Albumin 3.4 g/dL (3.4-5.0); Bilirubin Direct 0.5 mg/dL (0-0.2); Bilirubin Total 1.1 mg/dL (0.2-1.0); Phosphorus 3.7 mg/dL (2.5-4.9); Potassium 4.2 mmol/L (3.5-5.1); Protein, Total 6.6 g/dL (6.4-8.2); Thyroid Stimulating Hormone 0.285 uIU/mL (0.360-3.740)
[2021-06-27] MEDS: NA CHLORIDE 0.9% 1,000 ML IV SCH ×3 (06:44→23:00)
--- NOTE | 2021-06-27 10:21 | P.PN ---
Subjective Date of Service: 06/27/21 Primary Care Provider: Noe Chief Complaint: cholecystitis, cholelithiasis, RUQ pain, elev liver #s Subjective: Improving (Total / direct bilirubin improved today. Awaiting MRCP. Yesterday sphincterotome not available (on Sunday no MRCP at facility) so ERCP not done.) Physical Examination - Vital Signs Temperature: 97.5 F Blood Pressure: 110/60 Pulse: 68 Respirations: 19 Pulse Ox (%): 100 Assessment And Plan - Current Problems (Diagnosis) (1) Cholelithiasis Current Visit: Yes Status: Acute (2) Cholecystitis Current Visit: Yes Status: Acute (3) Common bile duct dilation Current Visit: Yes Status: Acute (4) Elevated liver enzymes Current Visit: Yes Status: Acute - Plan REC: 1) await MRCP 2) NPO 3) IVFs 4) prn pain medications / anti-emetics 5) continue IV antibiotics
[2021-06-27] MEDS: MORPHINE 2 MG/ML SYR IV PRN ×3 (10:29→22:22)
[2021-06-27] MEDS: ONDANSETRON 4 MG/2 ML VIAL IV PRN ×2 (10:29→17:16)
--- NOTE | 2021-06-27 12:41 | RAD REPORT ---
EXAM DESCRIPTION: MRI - Cholangiogram - 06/27/2021 12:00 pm CLINICAL HISTORY: dilated CBD, possible stone Abdominal pain COMPARISON: Abdomen Exam Limited dated 06/26/2021 FINDINGS: Three-dimensional MRCP was performed using maximum intensity projection reconstruction on the same work station. Intrahepatic biliary tree is within normal range. The common bile duct is mildly dilated with several small distal common bile duct filling defects compatible with choledocholithiasis. The pancreatic du ct is not pathologically dilated. The gallbladder contains numerous small stones. Limited T2 sequences through the abdomen demonstrates no bulky adenopathy, significant free fluid or abscess. IMPRESSION: Cholelithiasis. Numerous tiny stones are present in the distal common bile duct probable with choledocholithiasis.
--- NOTE | 2021-06-27 13:02 | P.PN ---
Subjective Date of Service: 06/27/21 Primary Care Provider: Noe Chief Complaint: cholecystitis, cholelithiasis, RUQ pain, elev liver #s Patient reports intermittent abdominal pain. MRCP done today showing normal stones in the CBD. Physical Examination - Vital Signs Temperature: 97.5 F Blood Pressure: 110/60 Pulse: 68 Respirations: 19 Pulse Ox (%): 100 - Physical Exam General: Alert, In no apparent distress, Oriented x3 Neck: JVD not distended Respiratory: Clear to auscultation bilaterally, Normal air movement Cardiovascular: No edema, Regular rate/rhythm, Normal S1 S2, No murmurs Capillary refill: <2 Seconds Gastrointestinal: Normal bowel sounds, Soft and benign, Non-distended, No tenderness Musculoskeletal: No swelling, No tenderness Integumentary: No rashes, No erythema Neurological: Normal strength at 5/5 x4 extr Assessment And Plan - Current Problems (Diagnosis) (1) Cholecystitis Current Visit: Yes Status: Acute (2) Cholelithiasis Current Visit: Yes Status: Acute (3) Elevated liver enzymes Current Visit: Yes Status: Acute - Plan Patient seen by GI and plan for ERCP followed by lap cholecystectomy. Continue supportive measures with IV fluids, pain management as needed, antiemetics as needed. Empiric IV antibiotics. LFTs and bilirubin trended down from yesterday. Continue to monitor LFT
--- NOTE | 2021-06-27 13:12 | CON ---
Date of Consultation: 06/27/2021 Reason For Service: Acute cholecystitis, symptomatic cholelithiasis, and choledocholithiasis. History Of Present Illness: This is the case of a 31-year-old patient, admitted yesterday with right upper quadrant abdominal pain. It has been like for about 5 days associated with nausea. The pain got worse yesterday, so she come to the ER. During the workup, found to have also an increased liver function test and the ultrasound suggesting choledocholithiasis. Dr. Acosta consulted yesterday, bu t ERCP cannot be done for hospital instrument reasons. The patient is supposed to have an ERCP this morning done, although still pending. She feels a little bit better, but she has the need since yest erday. She denies any prior episode. She has claimed she was going to come to my office this week t o talk to me, but since over the weekend it got worse, she has to come to the ER, so they consulted sivan esparza. Allergies: NONE. Past Medical History: Medical problems none. Social History: She does not smoke. She does not drink alcohol. Past Surgical History: Includes gastric sleeve done about a year ago. She lost about 100 pounds in the year. Review of Systems: See H and P, nausea, abdominal pain. No dysuria, hematuria, hematochezia. No melena. Physical Examination: General: The patient is awake, alert. HEENT: Pupils anicteric. Neck: Supple. Lungs: Bilateral breath sounds. Abdomen: Soft and depressible. Right upper quadrant tenderness. Extremities: Good capillary refill. Breasts: Deferred. Rectal: Deferred. Pelvic: Deferred. Laboratory Data: Blood work shows a WBC count of 5.2, hemoglobin of 13, and platelets of 267. INR i s 1.09. Chemistry shows sodium 139, bicarb is 18, total bilirubin of 1.9, direct bilirubin of 1.3, a lkaline phosphatase 155, AST 117, ALT 271. Amylase 45, lipase 105. Ultrasound assessment by Dr. Paul latif shows described as cholelithiasis with gallbladder sludge and dilated common bile duct, which ca n be seen with distal biliary obstruction. Assessment: It is a 31-year-old patient with acute cholecystitis, symptomatic cholelithiasis, increa sed liver enzymes, and ultrasound described by Dr. Hermes as a distal bowel obstruction, so I agree with Dr. Acosta and his approach of ERCP and then the patient was planed after that on laparoscopic p ossible open cholecystectomy with benefits, alternatives, and risks fully explained, which include, b ut not limited to infection, bleeding, damage to adjacent structures, anesthesia complication, recurr ence, VA, and even . She also understands this may not relieve any symptoms. She might need mo re than one surgical intervention. I went to talk to the OR and asked them to see why the ERCP has n ot been done yet. Apparently, there are some issues with the supplies. I suggested if they cannot s olve this issue, then I would offer the patient to be transferred to another institution to receive t he care. She understands that. She will give a try today here. Hopefully, they can find the instru ments. JENNIFER Voice ID: [id number] Report ID: [id number]
[2021-06-27 13:37] LABS: Urine Appearance CLEAR (Clear); Urine Bilirubin NEGATIVE (Negative); Urine Blood 2+ (Negative); Urine Color YELLOW (Yellow); Urine Glucose NEGATIVE (Negative); Urine Protein NEGATIVE (Negative); Urine pH 5.5 (5.0-7.0)
[2021-06-27 13:40] LABS: Urine Microscopic Reflex ORDER UMIC
[2021-06-27 13:47] LABS: Urine Bacteria <20 /HPF (<20); Urine Mucus 1+ /HPF (NONE SEEN)
[2021-06-27 16:40] LABS: Magnesium 1.6
--- NOTE | 2021-06-27 19:49 | P.PN ---
Date of Service: 06/28/21 Subjective: Continues with some mild RUQ discomfort, no nausea/vomiting, but is taking Zofran No diarrhea No new symptoms ROS: as noted above, otherwise 10 point ROS negative Physical Exam: General: Alert, In no apparent distress, Oriented x3 Respiratory: Clear to auscultation bilaterally, non-labored on RA Cardiovascular: No edema, Regular rate/rhythm Gastrointestinal: Soft and benign, Non-distended, RUQ tenderness Musculoskeletal: No swelling, No tenderness Integumentary: No rashes, No erythema Neurological: Normal strength at 5/5 x4 extr Problem List: acute cholecystitis with choledocholithiasis elevated LFTs secondary to above COVID-19 positive, asymptomatic MRCP: probably choledocholithiasis, with stones in distal CBD, no dilatation GI consulted, ERCP to be done today, not done due to issues with instrumentation/OR General surgery consulted, recommends ERCP first, then will need cholecystectomy, likely tomorrow continue Zosyn for empiric coverage IVF, NPO for ERCP LFTs and bili improving, continue to monitor Code: full Dispo: dc home in ~2 days
[2021-06-28] MEDS: PIPER TAZO 3.375 GM in NA CHLORIDE 0.9% 100 ML IV SCH ×3 (01:00→16:55)
[2021-06-28 03:50] LABS: Absolute Lymphocytes (CBC) 1.4 K/uL (0.7-4.9); Hematocrit 36.8 % (36.0-45.0); Lymphocytes % 26.1 % (15.3-44.8)
[2021-06-28 04:08] LABS: Albumin 3.6 g/dL (3.4-5.0); Bilirubin Total 1.1 mg/dL (0.2-1.0); Protein, Total 7.1 g/dL (6.4-8.2)
[2021-06-28] MEDS ORDERED: D5W 1,000 ML IV SCH (08:00)
[2021-06-28] MEDS: ONDANSETRON 4 MG/2 ML VIAL IV PRN ×2 (09:36→21:30)
[2021-06-28] MEDS: MORPHINE 2 MG/ML SYR IV PRN ×2 (09:36→21:19)
[2021-06-28] MEDS ORDERED: GLUCAGON 1 MG/VIAL ONE (11:58)
[2021-06-28] MEDS ORDERED: GENTAMICIN SULF 80 MG/2ML INJ ONE (11:58)
[2021-06-28] MEDS ORDERED: MIDAZOLAM HCL 2 MG/2 ML INJ ONE (12:12)
[2021-06-28] MEDS ORDERED: LIDOCAINE 1% MPF 30 ML VIAL ONE (12:12)
[2021-06-28] MEDS ORDERED: propofoL 200 MG/20 ML VIAL IV ONE ×3 (12:12→13:23)
[2021-06-28] MEDS ORDERED: FENTANYL CITR 100 MCG/2 ML ONE (12:12)
[2021-06-28] MEDS ORDERED: Ringers Lactate 1,000 ML IV ONE (12:16)
--- NOTE | 2021-06-28 13:58 | PN ---
Date of Progress Note: 06/28/2021 Diagnosis: Acute cholecystitis, symptomatic cholelithiasis, and choledocholithiasis. Subjective: This is the case of a 31-year-old patient, comes to us with acute cholecystitis, admitte d to the hospital. ERCP was planned, but has not been done yet. Today, she is going for ERCP and th en eventually proceed with cholecystectomy. The patient feels better, but at the same time, she has been having a full meal. The MRCP is done recently showing once again confirming the findings of the ultrasound of choledocholithiasis. Objective: Chest: Clear. Abdomen: Soft and depressible. Extremities: Good capillary refill. Laboratory Data: Blood work was reviewed again with increased bilirubin. Assessment: This is a 31-year-old patient with acute cholecystitis, symptomatic cholelithiasis, and choledocholithiasis. The patient to have ERCP. If successful, then we will proceed with laparoscopi c possible open cholecystectomy in the next few hours by tomorrow morning. Benefits, alternatives, a nd risks fully explained, which include, but not limited to infection, bleeding, damage to adjacent s tructures, anesthesia complication, choledocholithiasis, bile leak, pancreatitis, SD, and even . She also understands this may not any relieve symptoms. She might need more than one surgical inte rvention. She understood. JNAICE/RESHMA Voice ID: [id number] Report ID: [id number]
--- NOTE | 2021-06-28 14:09 | ENDO RPT ---
[address], [address] ERCP PROCEDURE REPORT EXAM DATE: 06/28/2021 PATIENT NAME: Gerald Shin MR #: [id number] BIRTHDATE: 1990 ATTENDING: Toni Acosta Dr STATUS: inpatient WINDOW CLEANER: Stephan Merlos CST and Yoli Vega RN INDICATIONS: The patient is a 31 yr old Female here for an ERCP due to abnormal imaging with MRCP revealing stones in the common bile duct, RUQ/ZAID abdominal pain, and abnormal Liver Function Tests PROCEDURE PERFORMED: ERCP MEDICATIONS: Per Anesthesia. CONSENT: The patient understands the risks and benefits of the procedure and understands that these risks include, but are not limited to: sedation, allergic reaction, infection, perforation and/or bleeding. Alternative means of evaluation and treatment include, among others: physical exam, x-rays, and/or surgical intervention. The patient elects to proceed with this endoscopic procedure. DESCRIPTION OF PROCEDURE: During intra-op preparation period all mechanical medical equipment was checked for proper function. Hand hygiene and appropriate measures for infection prevention was taken. Procedure, possible complications, and alternatives including but not limited to the possibility of bleeding, perforation, tear, infection, sepsis, need for surgery, need for blood transfusion, and anesthesia related complications were explained to the patient. In addition, 5-30% incidence of acute pancreatitis as a result of ERCP were explained. After the risks, benefits and alternatives of the procedure were thoroughly explained, Informed was verified, confirmed and timeout was successfully executed by the treatment team. With the patient in left semi-prone position, medications were administered intravenously.The [id number] ([id number]) was passed from the mouth into the esophagus and further advanced from the esophagus into the stomach. From stomach scope was directed to the second portion of the duodenum. Major papilla was aligned with the duodenoscope. The scope position was confirmed fluoroscopically. Rest of the findings/therapeutics are given below. The scope was then completely withdrawn from the patient and the procedure completed. The pulse, BP, and O2 saturation were monitored and documented by the physician and the nursing staff throughout the entire procedure. The patient was cared for as planned according to standard protocol. The patient was then discharged to recovery in stable condition and with appropriate post procedure care. The pancreatic duct was filled to the tail and appeared to be normal. Care was taken not to overfill the ductal system. Unable to cannulate common bile duct despite multiple manuevers including double wire technique. No precut sphincterotomy nor needle knife attempted. ADVERSE EVENT: None IMPRESSIONS: 1. The pancreatic duct was filled to the tail and appeared to be normal. Care was taken not to overfill the ductal system. 2. Unable to cannulate common bile duct despite multiple manuevers including double wire technique 2. tertiary center for advanced endoscopic therapy REPEAT EXAM: Toni Acosta Dr eSigned: Toni Acosta Dr 06/28/2021 2:09 PM cc: Aditi Conteh CPT CODES: ICD9 CODES: PATIENT NAME: Gerald Shin MR#: [id number]
--- NOTE | 2021-06-28 14:28 | RAD REPORT ---
EXAM DESCRIPTION: Fluoroscopy for ERCP CLINICAL HISTORY: ERCP Abdominal pain FINDINGS: Fluoroscopic images submitted from ERCP procedure. Details and diagnostic findings of the procedure are not available. Total fluoroscopy time: 5 minutes 30 seconds
[2021-06-28] MEDS ORDERED: Ringers Lactate 1,000 ML IV SCH ×2 (15:00)
[2021-06-28 15:05] VITALS: O2SAT 100
--- NOTE | 2021-06-28 20:32 | P.DS ---
Admission Date: 06/26/21 Discharge Date: 06/28/21 Primary Care Provider: Noe Disposition: TRANSFER TO [facility] Discharge Condition: FAIR Reason for Admission: cholecystitis, cholelithiasis, RUQ pain, elev liver #s Consultations: GI - Dr. Acosta General Surgery - Dr. Camacho Procedures: Abd U/S (06/26): IMPRESSION: 1. Cholelithiasis with gallbladder sludge. 2. Dilated common bile duct which can be seen with distal biliary duct obstruction, follow-up MRCP can be performed as appropriate. MRCP (06/27): FINDINGS: Three-dimensional MRCP was performed using maximum intensity projection reconstruction on the same work station. Intrahepatic biliary tree is within normal range. The common bile duct is mildly dilated with several small distal common bile duct filling defects compatible with choledocholithiasis. The pancreatic duct is not pathologically dilated. The gallbladder contains numerous small stones. Limited T2 sequences through the abdomen demonstrates no bulky adenopathy, significant free fluid or abscess. IMPRESSION: Cholelithiasis. Numerous tiny stones are present in the distal common bile duct probable with choledocholithiasis. ERCP (06/28): pancreatic duct filled to the tail and appeared to be normal. Unable to cannulate common bile duct despite multiple maneuvers. Problem List: acute cholecystitis with choledocholithiasis elevated LFTs secondary to above COVID-19 positive, asymptomatic Brief History of Present Illness: 31yo F with cholelithiasis who presents with 5 days of severe RUQ pain radiatian to her flank. She reports nausea. She has had decreased appetite and fluid intake. Symptoms are worse with food intake. Denies fever, and vomiting. She was scheduled for an appointment with general surgeon on Sunday but her pain continued to increase this evening. Gallbladder US shows cholelithiasis with gall bladder sludge, dilated DBD suspect distal biliary obstruction Hospital Course: Empirically treated with Zosyn, pain control, IV fluids, and bowel rest. She had improvement in her symptoms and elevated LFTs. GI was consulted, MRCP revealed stones in CBD. ERCP was delayed due to instrumentation issues/availability. ERCP was performed on 06/28 and CBD was unable to be cannulated. Patient was transferred to [facility] [place] [place] for advanced endoscopy. General surgery was consulted as well on admission and planned for cholecystectomy after ERCP was performed. Vital Signs/Physical Exam: Temp Pulse Resp BP Pulse Ox 98.6 F 66 18 122/65 100 06/28/21 20:00 06/28/21 20:00 06/28/21 20:00 06/28/21 20:00 06/28/21 20:00 General: Alert, In no apparent distress, Oriented x3 HEENT: Sclerae nonicteric Respiratory: Clear to auscultation bilaterally, Normal air movement Cardiovascular: No edema, Regular rate/rhythm Gastrointestinal: Non-distended, Tenderness (moderate - RUQ) Musculoskeletal: No tenderness Integumentary: No rashes, No significant lesion Neurological: Normal speech, Normal affect Laboratory Data at Discharge: WBC 5.40 K/uL (4.3-10.9) D 06/28/21 03:27 Hgb 12.5 g/dL (12.0-15.0) 06/28/21 03:27 Hct 36.8 % (36.0-45.0) 06/28/21 03:27 Plt Count 278 K/uL (152-406) 06/28/21 03:27 PT 12.6 SECONDS (9.5-12.5) H 06/26/21 07:20 INR 1.09 06/26/21 07:20 APTT 34.6 SECONDS (24.3-36.9) 06/26/21 07:20 Sodium 136 mmol/L (136-145) 06/28/21 03:27 Potassium 4.0 mmol/L (3.5-5.1) 06/28/21 03:27 BUN 10 mg/dL (7-18) 06/28/21 03:27 Creatinine 0.92 mg/dL (0.55-1.3) 06/28/21 03:27 Glucose 63 mg/dL (74-106) L 06/28/21 03:27 Phosphorus 3.7 mg/dL (2.5-4.9) 06/27/21 03:30 Magnesium 1.6 06/27/21 03:30 Total Bilirubin 1.1 mg/dL (0.2-1.0) H 06/28/21 03:27 AST 44 U/L (15-37) H 06/28/21 03:27 ALT 161 U/L (12-78) H 06/28/21 03:27 Alkaline Phosphatase 126 U/L (45-117) H 06/28/21 03:27 Triglycerides 85 mg/dL (<150) 06/27/21 03:30 Cholesterol 158 mg/dL (<200) 06/27/21 03:30 HDL Cholesterol 44 mg/dL (40-60) 06/27/21 03:30 Cholesterol/HDL Ratio 3.59 06/27/21 03:30 Amylase 45 U/L (25-115) 06/27/21 03:30 Lipase 105 U/L (73-393) 06/27/21 03:30 Home Medications: NK [No Home Meds] 06/26/21 Physician Discharge Instructions: . Diet: NPO Activity: No lifting more than 10 lbs Followup: NONE,NONE [Primary Care Provider] - 1 Week ( ) Time spent managing pt's care (in minutes): 45
[2021-06-28 23:43] VITALS: BP 125/69; TEMP 98.2
== END 2021-06-29 02:00 | disposition short-term general hospital (02) | DRG 444 ==
LOC: ER 01:28 → ERHOLD 06:51 → 4TH 17:21
PROVIDERS: ADMIT Internal Medicine; ATTEND Hospitalist
PROC: 0FJD8ZZ Inspection of Pancreatic Duct, Via Natural or Artificial Opening Endoscopic (ICD-10-PCS; principal; 2021-06-28 12:00)
DX: K80.42 Calculus of bile duct with acute cholecystitis without obstruction (principal); U07.1 COVID-19; K83.8 Other specified diseases of biliary tract; R74.8 Abnormal levels of other serum enzymes; Z79.899 Other long term (current) drug therapy; Z98.84 Bariatric surgery status
CPT/HCPCS: 36415; 74181; 76705; 80048; 80053; 80061; 80069; 80076; 81003; 81015; 81025; 82150; 82248; 82947; 83690; 83735; 84439; 84443; 85025; 85610; 85730; 94760; 96374; 96375; 99284; C1769; J1580; J1610; J2250; J2270; J2405; J2543; J2704; J3010; J3480; J7030; J7120; J7799; U0003